=== PATIENT | female | born 1955 | race Caucasian/White ===

== ENCOUNTER → 2024-01-25 14:51 | Outpatient (REF) | payer MEDICARE, SELFPAY | LOC: HWWDC 14:51 | PROVIDERS: ATTENDING PHYSICIAN Obstetrics & Gynecology; FAMILY PHYSICIAN Family Medicine | DX: Z12.31 Encounter for screening mammogram for malignant neoplasm of breast (principal) | CPT/HCPCS: 77063; 77067 ==

== ENCOUNTER 2024-10-14 00:34 | Emergency (ER) | payer MEDICARE, SELFPAY ==
[2024-10-14 00:39] VITALS: BP 134/80
[2024-10-14 01:53] VITALS: BP 143/67
--- NOTE | 2024-10-14 02:18 | ED.GENMED ---
History of Present Illness
General
Chief Complaint: Fall
Time Seen by Provider: 10/14/24 01:09
History of Present Illness
History of Present Illness:
69-year-old female with history of diabetes presenting to the emergency department for left shoulder pain. Prior to arrival, patient fell at her house, tripped over her dog bed. She notes that she fell directly onto her left shoulder and felt that
it was broken. While trying to get her arm in a more comfortable position, she felt something 'pop '. She then felt improvement in pain. Denies head injury or loss of consciousness. She is not on blood thinners. Does note that she also scraped
her knee and has lower back pain. Denies chest pain or difficulty breathing. Denies prodromal symptoms such as lightheaded or dizziness. Denies additional acute medical complaints
Phy Exam
Physical Exam
Physical Exam:
General: Well-appearing, no clinical signs of dehydration, nontoxic and in no acute distress
HEENT: protecting airway
Head: Atraumatic
Neck: appears supple, no midline tenderness
CV: Normal heart rate, regular rhythm
Resp: No accessory muscle use, no increased work of breathing, lungs clear to auscultation bilaterally
Abd: No distention
Extremities: No deformities, no swelling. No deformity to the left upper extremity. Distal sensation and pulses intact. Range of motion grossly intact. Small abrasion to the right knee with range of motion intact, no swelling or deformity. No
reproducible tenderness to the back
Neuro: alert, no focal neurologic deficit
: deferred
Rectal: deferred
Psych: Normal affect
Skin: Intact
Course
Orders/Labs/Results
Orders:
Orders
10/14/24 00:45
Shoulder, Left, Trauma CR [CR Shoulder, Trauma - Left] Urgent
Comment: possible dislocated shoulder, pt relocated herself
Reason For Exam: fell at home,
Vital Signs
Initial and Last Documented VS:
Initial Vital Signs
Temp Pulse Resp BP Pulse Ox
98.0 F 73 16 134/80 99
10/14/24 00:39 10/14/24 00:39 10/14/24 00:39 10/14/24 00:39 10/14/24 00:39
Last Documented Vital Signs
Temp Pulse Resp BP Pulse Ox
98.0 F 73 16 143/67 95
10/14/24 00:39 10/14/24 01:53 10/14/24 00:39 10/14/24 01:53 10/14/24 01:56
MDM/Problems Addressed
MDM/Problems Addressed:
69-year-old female presenting with left shoulder pain after a mechanical fall. Vital signs are normal.
On exam patient is resting comfortably, no acute distress or discomfort. No significant signs of trauma. GCS of 15, denies any head injury. No midline neck tenderness. Patient only complaint is left shoulder. No obvious deformity or swelling.
Suspect the patient had dislocated her shoulder prior to arrival given mechanism, and relocated it herself. No present neurovascular compromise. X-ray obtained, no fracture or malalignment. Plan for discharge with continued outpatient supportive
therapy and orthopedic follow-up. Return precautions discussed with patient verbalized understanding
*Pulse Oximetry
SaO2: 95
Oxygen Mode of Delivery: Room air
Patient hypoxic: no
*Critical Care Note
Total Time (30-74mins, 75-104mins- exclusive of procedures): Not Applicable
ED Attending Note
-
Portions of this chart may have been created with voice recognition software.� Occasional wrong word or��sound alike� substitutions may have occurred due to the inherent limitations of voice recognition software.
Discharge Plan
Departure
Patient Disposition: Home (Routine Discharge)
Date of Disposition: 10/14/24
Time of Disposition: 02:23
Patient with high blood pressure during this ER visit?: No
Condition: Good
Discharge Problem:
Dislocation of shoulder, left, closed
Instructions: Shoulder Dislocation (DC)
Referrals:
Rock Urban MD [Active, Orthopedics]
Activity Restrictions/Additional Instructions:
You were seen in the emergency department for left shoulder pain
You were found to have normal x-rays of your shoulder. We suspect that you dislocated your shoulder and relocated prior to arrival. Please follow-up with orthopedic doctor and maintain a sling
Please follow-up closely with your primary care physician.
Return to the emergency department for any worsening of your symptoms, or any development of chest pain, difficulty breathing, abdominal pain with persistent vomiting and inability to tolerate food or liquid by mouth (concern for dehydration),
weakness, headache or confusion, fever greater than 100.4, or any additional symptoms that are concerning to you.
Thank you for choosing [facility].
Interventions
Interventions:
*Risk Screen - Suicide Last Done: 10/14/24 00:39
*General Assessment Last Done: 10/14/24 01:54
*Neglect/Abuse Screening Last Done: 10/14/24 01:54
*ED- Fall Risk Assessment Last Done: 10/14/24 01:54
*ED COVID-19 Vaccine History Last Done: 10/14/24 01:54
ED-Musculoskeletal Assessment Last Done: 10/14/24 01:54
ED- Neurological Assessment Last Done: 10/14/24 01:54
ED-Skin Assessment Last Done: 10/14/24 01:54
Discharge Date and Time
Print Language: IRISH
== END 2024-10-14 02:58 | disposition home or self-care (01) ==
LOC: EMR 00:34
PROVIDERS: EMERGENCY PHYSICIAN Student in an Organized Health Care Education/Training Program; FAMILY PHYSICIAN Family Medicine
DX: S43.005A Unspecified dislocation of left shoulder joint, initial encounter (principal); S80.211A Abrasion, right knee, initial encounter; M54.50 Low back pain, unspecified; W18.09XA Striking against other object with subsequent fall, initial encounter; Y92.009 Unspecified place in unspecified non-institutional (private) residence as the place of occurrence of the external cause
CPT/HCPCS: 99283; 73030